=== PATIENT | male | born 1955 | race Caucasian/White ===

== ENCOUNTER 2024-06-13 08:20 | Outpatient (CLI) | payer MEDICARE, BC, SELFPAY ==
--- NOTE | 2024-06-13 09:52 | P.ANES_ITS ---
Anesthesia Charges Start Date/Time Anesthesia Start Date: 06/13/24 Anesthesia Start Time: 09:14 Stop Date/Time Anesthesia Stop Date: 06/13/24 Anesthesia Stop Time: 09:48 Coding CPT Codes CPT Codes: JAKE LWR INTST NDSC NOS - [id number] ([id number]) P2 - PATIENT W/MILD SYST DISEASE, QK - MAINFRAME SYSTEMS ENGINEER 2-4 CNCRNT ANES PROC, QX - ACCOUNTS SUPERVISOR SVC W/ MD MED DIRECTION
--- NOTE | 2024-06-13 09:52 | W.ANESCHARGE ---
Anesthesia Charges Start Date/Time Anesthesia Start Date: 06/13/24 Anesthesia Start Time: 09:14 Stop Date/Time Anesthesia Stop Date: 06/13/24 Anesthesia Stop Time: 09:48 Coding CPT Codes CPT Codes: JAKE LWR INTST NDSC NOS - [id number] ([id number]) P2 - PATIENT W/MILD SYST DISEASE, QK - GARMENT INSPECTOR 2-4 CNCRNT ANES PROC, QX - SENIOR LINUX ENGINEER SVC W/ MD MED DIRECTION
--- NOTE | 2024-06-13 11:26 | P.ANES_ITS ---
Anesthesia Charges Start Date/Time Anesthesia Start Date: 06/13/24 Anesthesia Start Time: 09:14 Stop Date/Time Anesthesia Stop Date: 06/13/24 Anesthesia Stop Time: 09:48 Coding CPT Codes CPT Codes: JAKE LWR INTST NDSC NOS - [id number] ([id number]) QK - STEWARDESS SUPERVISOR 2-4 CNCRNT JAKE PROC, QX - EXPERIMENTAL MECHANIC ELECTRICAL SVC W/ MD MED DIRECTION, P2 - PATIENT W/MILD SYST DISEASE
--- NOTE | 2024-06-13 11:26 | W.ANESCHARGE ---
Anesthesia Charges Start Date/Time Anesthesia Start Date: 06/13/24 Anesthesia Start Time: 09:14 Stop Date/Time Anesthesia Stop Date: 06/13/24 Anesthesia Stop Time: 09:48 Coding CPT Codes CPT Codes: JAKE LWR INTST NDSC NOS - [id number] ([id number]) QK - PREMIUM AUDITOR 2-4 CNCRNT JAKE PROC, QX - BOX LINING MACHINE FEEDER SVC W/ MD MED DIRECTION, P2 - PATIENT W/MILD SYST DISEASE
== END 2024-06-13 08:21 | disposition home or self-care (01) ==
PROVIDERS: PCP Student in an Organized Health Care Education/Training Program; Visit Provider Internal Medicine Gastroenterology
DX: Z12.11 Encounter for screening for malignant neoplasm of colon (principal); D12.2 Benign neoplasm of ascending colon; D12.8 Benign neoplasm of rectum; K64.8 Other hemorrhoids; K57.30 Diverticulosis of large intestine without perforation or abscess without bleeding; K64.4 Residual hemorrhoidal skin tags
CPT/HCPCS: 00811; 45385; 88305; J2704